=== PATIENT | female | born 1965 | race African-American/Black ===

== ENCOUNTER 2022-08-16 21:09 | Emergency (ER) | payer BC, MEDICAID ==
[~2022-08-16] VITALS: Ht 165.1 cm; Wt 105.0 kg
[2022-08-16] MEDS ORDERED: METHYLPREDNISOLONE SOD SUCC 125 MG/2 ML VIAL IV STA (21:41)
[2022-08-16] MEDS ORDERED: IPRATROPIUM BROMIDE (0.02%) 0.5MG/2.5ML NEB HHN STA (21:41)
[2022-08-16 21:58] LABS: EOSINOPHILS % 2.5 % (0.0-5.0); HEMATOCRIT. 43.2 % (36.0-48.0); HEMOGLOBIN. 14.2 g/dL (12.0-16.0); LYMPHOCYTES % 20.6 % (20.0-50.0); MEAN CORPUSCULAR HEMOGLOBIN 27.5 pg (28.0-32.0); MEAN CORPUSCULAR VOLUME 83.4 fL (81.0-99.0); MEAN PLATELET VOLUME 8.8 fl (7.4-10.4); MONOCYTES % 5.2 % (2.0-8.0); NEUTROPHILS % 70.7 % (40.0-76.0); PLATELET 209 x1000/uL (130-400); RED BLOOD CELL COUNT 5.19 mill/uL (4.2-5.4); RED CELL DISTRIBUTION WIDTH 13.9 % (11.6-14.6)
[2022-08-16 22:06] LABS: CHLORIDE 107 mEq/L (98-107)
[2022-08-16] MEDS: ALBUTEROL (0.083%) 2.5MG/3ML NEB HHN SCH ×3 (22:38→23:57)
[2022-08-17 01:00] VITALS: BP 140/81
[2022-08-17] MEDS ORDERED: ALBU05 NEB (01:19)
[2022-08-17] MEDS ORDERED: P50 MT (01:19)
[2022-08-17] MEDS ORDERED: ALBU6.7H3 INH (01:19)
== END 2022-08-17 01:20 | disposition home or self-care (01) ==
LOC: ER 21:09
DX: J44.1 Chronic obstructive pulmonary disease with (acute) exacerbation (principal); E87.6 Hypokalemia; F17.200 Nicotine dependence, unspecified, uncomplicated
CPT/HCPCS: 36415; 71045; 80053; 84484; 85025; 93005; 94640; 96374; 99285; J2930